=== PATIENT | female | born 1995 | race Caucasian/White ===

== ENCOUNTER 2024-04-23 23:17 | Emergency (ER) | payer BC ==
[~2024-04-23] VITALS: Ht 154.9 cm; Wt 59.0 kg
[2024-04-23] MEDS ORDERED: traMADol HCL 50 MG/TAB PO ONE (23:50)
[2024-04-23] MEDS ORDERED: SODIUM CHLORIDE 0.9% 1,000 ML IV ONE (23:50)
[2024-04-23] MEDS ORDERED: CYCLOBENZAPRINE HCL 5 MG TAB PO ONE (23:50)
[2024-04-23] MEDS ORDERED: KETOROLAC TROMETHAMINE 30 MG/ML SDV IV ONE (23:50)
[2024-04-24 00:05] LABS: BASO% 0.4 % (0-3); EOS% 1.1 % (0-8); HEMATOCRIT 39.9 % (37.0-47.0); HEMOGLOBIN 13.4 g/dl (12.0-16.0); IMMATURE GRANULOCYTES 0.1 % (0.0-5.0); MEAN CELL VOLUME 87.1 fL CALC (80.0-100.0); MEAN CORPUSCULAR HGB 29.3 pG CALC (26.0-32.0); MEAN CORPUSCULAR HGB CONC 33.6 g/dL CAL (32.0-36.0); MONO% 6.6 % (2-13); NEUT# 4.7 thou/uL (2.00-7.15); NEUT% 50.8 % (42-76); RED BLOOD COUNT 4.58 mill/uL (4.20-5.60); RED CELL DISTRI WIDTH 12.3 % (11.5-15.5)
[2024-04-24 00:15] LABS: URINE BILIRUBIN - DIPSTICK Negative (NEGATIVE); URINE BLOOD DIPSTICK Moderate (NEGATIVE); URINE COLOR Yellow; URINE GLUCOSE - DIPSTICK Negative (NEGATIVE); URINE KETONE Negative (NEGATIVE); URINE LEUK ESTERASE Negative (NEGATIVE); URINE NITRITE - DIPSTICK Negative (Negative); URINE PROTEIN - DIPSTICK Negative (NEG-TRACE); URINE UROBILINOGEN - DIPSTICK 0.2 E.U./dL (0.2)
[2024-04-24 00:24] LABS: URINE RBC 0-2 RBC/hpf (0-5); URINE SQUAMOUS EPITHELIAL CELL RARE EPI/hpf (0-FEW); URINE WBC 0-2 WBC/hpf (0-5)
[2024-04-24 00:30] LABS: ALBUMIN 4.3 g/dL (3.2-5.0); BILIRUBIN, TOTAL 0.7 mg/dL (0.02-1.3); CREATININE 0.8 mg/dL (0.5-1.0); POTASSIUM 4.1 mmol/l (3.5-5.1); TOTAL PROTEIN 7.9 g/dL (6.3-8.2)
[2024-04-24] MEDS ORDERED: VOLTAREN - GENE75 MG PO (00:48)
[2024-04-24 01:30] VITALS: BP 133/94
== END 2024-04-24 01:30 | disposition home or self-care (01) | DRG 563 ==
LOC: ED 23:17
PROVIDERS: Family Medicine
DX: S29.012A Strain of muscle and tendon of back wall of thorax, initial encounter (principal); X58.XXXA Exposure to other specified factors, initial encounter